=== PATIENT | male | born 1950 | race Caucasian/White ===

== ENCOUNTER 2017-08-18 20:07 | Inpatient (IN) | payer MEDICARE, BC ==
[~2017-08-18] VITALS: Ht 193 cm; Wt 76.9 kg
[2017-08-18 20:00] VITALS: BP 138/63; PULSE 61; RESP 16; TEMP 97.7; O2SAT 96
[2017-08-18 20:08] VITALS: BP 150/81; PULSE 85; RESP 16; TEMP 98.2; O2SAT 98
--- NOTE | 2017-08-18 21:01 | PD ---
HPI Chief Complaint: Laceration/Skin Injury Time Seen by Provider: 21:01 Travel History International Travel<30 days: No Contact w/Intl Traveler<30days: No Traveled to known affect area: No History of Present Illness HPI 66-year-old male with history of hypertension, pacemaker placement, on an unknown anticoagulant, presents to emergency department for evaluation of left foot injury sustained 2 days ago. Patient stepped on a rebar it went through his left foot. He was wearing his shoes during the incident. He went to urgent care. They updated his tetanus and started him on oral antibiotic. He went back today for follow-up and the wound has gotten worse with associated redness and swelling and now streaking up his left lower extremity. He reports moderate pain that is constant at the site. Worse with ambulation. He has had no fever or chills. Denies any other symptoms at this time. PFSH Past Medical History Hx Anticoagulant Therapy: Yes Cardiovascular Problems: Yes (HTN, Pacemaker ) Hypertension: Yes Tetanus Vaccination: < 5 Years Influenza Vaccination: No Past Surgical History Pacemaker: Yes Social History Alcohol Use: Yes (4-6 beers dails ) Tobacco Use: Yes (1 ppd) Substance Use: No Allergies-Medications (Allergen,Severity, Reaction): Coded Allergies: No Known Drug Allergies (Verified Allergy, Unknown, 08/18/17) Reported Meds & Prescriptions Reported Meds & Active Scripts Active Reported Office Medication (Miscellaneous Medication) Misc 1 Tab PO DAILY Office Medication (Miscellaneous Medication) Misc 1 Tab PO DAILY Office Medication (Miscellaneous Medication) Misc 1 Tab PO DAILY Augmentin (Amoxicillin-Clavulanate) 875-125 Mg Tab 1 Tab PO BID Review of Systems Except as stated in HPI: all other systems reviewed are Neg Physical Exam Narrative GENERAL: Well-nourished male patient, sitting in bed in no acute distress. SKIN: Focused skin assessment warm/dry. Unsure wound on the plantar surface of the left foot proximal to the fourth toe. There is mild edema there there partial wound extends through the foot and there is a 1 cm in diameter scabbed area. Erythema extends to the medial aspect of the foot and up to the distal third of the green. Area is tender to palpate. Patient can flex and extend the toes. States this is painful. HEAD: Atraumatic. Normocephalic. EYES: Pupils equal and round. No scleral icterus. No injection or drainage. ENT: No nasal bleeding or discharge. Mucous membranes pink and moist. NECK: Trachea midline. No JVD. CARDIOVASCULAR: Regular rate and rhythm. No murmur appreciated. RESPIRATORY: No accessory muscle use. Clear to auscultation. Breath sounds equal bilaterally. GASTROINTESTINAL: Abdomen soft, non-tender, nondistended. Hepatic and splenic margins not palpable. MUSCULOSKELETAL: No obvious deformities. No clubbing. No cyanosis. No edema. NEUROLOGICAL: Awake and alert. No obvious cranial nerve deficits. Motor grossly within normal limits. Normal speech. PSYCHIATRIC: Appropriate mood and affect; insight and judgment normal. Data Data Last Documented VS Vital Signs Date Time Temp Pulse Resp B/P (MAP) Pulse Ox O2 Delivery O2 Flow Rate FiO2 08/18/17 20:08 98.2 85 16 150/81 (104) 98 Room Air Orders Orders Foot, Complete ([id number]) (08/18/17 ) Complete Blood Count With Diff (08/18/17 21:08) Comprehensive Metabolic Panel (08/18/17 21:08) Blood Culture (08/18/17 21:08) Blood Glucose (08/18/17 21:08) Ecg Monitoring (08/18/17 21:08) Iv Access Insert/Monitor (08/18/17 21:08) Oximetry (08/18/17 21:08) Oxygen Administration (08/18/17 21:08) Vancomycin Inj (Vancomycin Inj) (08/18/17 21:15) Labs Laboratory Tests Test 08/18/17 21:15 White Blood Count 7.4 TH/MM3 Red Blood Count 4.53 MIL/MM3 Hemoglobin 15.3 GM/DL Hematocrit 43.8 % Mean Corpuscular Volume 96.7 FL Mean Corpuscular Hemoglobin 33.9 PG Mean Corpuscular Hemoglobin Concent 35.0 % Red Cell Distribution Width 13.2 % Platelet Count 193 TH/MM3 Mean Platelet Volume 7.9 FL Neutrophils (%) (Auto) 76.1 % Lymphocytes (%) (Auto) 14.5 % Monocytes (%) (Auto) 7.9 % Eosinophils (%) (Auto) 1.0 % Basophils (%) (Auto) 0.5 % Neutrophils # (Auto) 5.6 TH/MM3 Lymphocytes # (Auto) 1.1 TH/MM3 Monocytes # (Auto) 0.6 TH/MM3 Eosinophils # (Auto) 0.1 TH/MM3 Basophils # (Auto) 0.0 TH/MM3 CBC Comment DIFF FINAL Differential Comment Blood Urea Nitrogen 11 MG/DL Creatinine 0.92 MG/DL Random Glucose 98 MG/DL Total Protein 7.5 GM/DL Albumin 3.7 GM/DL Calcium Level 9.2 MG/DL Alkaline Phosphatase 68 U/L Aspartate Amino Transf (AST/SGOT) 20 U/L Alanine Aminotransferase (ALT/SGPT) 16 U/L Total Bilirubin 0.8 MG/DL Sodium Level 136 MEQ/L Potassium Level 4.3 MEQ/L Chloride Level 101 MEQ/L Carbon Dioxide Level 28.0 MEQ/L Anion Gap 7 MEQ/L Estimat Glomerular Filtration Rate 82 ML/MIN MDM Medical Decision Making Medical Screen Exam Complete: Yes Emergency Medical Condition: Yes Medical Record Reviewed: Yes Differential Diagnosis Cellulitis versus osteomyelitis versus puncture wound versus abscess Narrative Course 66-year-old male presents to emergency department for evaluation of a wound sustained 2 days ago. Patient has been on antibiotics outpatient and return for follow-up at the urgent care who then sent him to the emergency department for failed outpatient treatment. Patient appears nontoxic. Vital signs are stable. Laboratory Tests Test 08/18/17 21:15 White Blood Count 7.4 TH/MM3 Red Blood Count 4.53 MIL/MM3 Hemoglobin 15.3 GM/DL Hematocrit 43.8 % Mean Corpuscular Volume 96.7 FL Mean Corpuscular Hemoglobin 33.9 PG Mean Corpuscular Hemoglobin Concent 35.0 % Red Cell Distribution Width 13.2 % Platelet Count 193 TH/MM3 Mean Platelet Volume 7.9 FL Neutrophils (%) (Auto) 76.1 % Lymphocytes (%) (Auto) 14.5 % Monocytes (%) (Auto) 7.9 % Eosinophils (%) (Auto) 1.0 % Basophils (%) (Auto) 0.5 % Neutrophils # (Auto) 5.6 TH/MM3 Lymphocytes # (Auto) 1.1 TH/MM3 Monocytes # (Auto) 0.6 TH/MM3 Eosinophils # (Auto) 0.1 TH/MM3 Basophils # (Auto) 0.0 TH/MM3 CBC Comment DIFF FINAL Differential Comment Blood Urea Nitrogen 11 MG/DL Creatinine 0.92 MG/DL Random Glucose 98 MG/DL Total Protein 7.5 GM/DL Albumin 3.7 GM/DL Calcium Level 9.2 MG/DL Alkaline Phosphatase 68 U/L Aspartate Amino Transf (AST/SGOT) 20 U/L Alanine Aminotransferase (ALT/SGPT) 16 U/L Total Bilirubin 0.8 MG/DL Sodium Level 136 MEQ/L Potassium Level 4.3 MEQ/L Chloride Level 101 MEQ/L Carbon Dioxide Level 28.0 MEQ/L Anion Gap 7 MEQ/L Estimat Glomerular Filtration Rate 82 ML/MIN Lab work and imaging is reviewed. Patient will be admitted for failed outpatient treatment. He is given vancomycin IV here in emergency department. Discussed with the patient and his . They are in agreement with this plan of care. I spoke with Dr. Willard who suggested [facility]. I discussed this with the patient and his . They are not interested in doing [facility] and prefers that he in the hospital for monitoring and IV antibiotics. A call is placed again to Dr. WILLARD for admission. Diagnosis Primary Impression: Puncture wound of foot, left, complicated Qualified Codes: S91.332D - Puncture wound without foreign body, left foot, subsequent encounter Additional Impressions: Cellulitis Qualified Codes: L03.116 - Cellulitis of left lower limb Failure of outpatient treatment Admitting Information Admitting Physician Requests: Observation Condition: Stable RameshJuanita JIMMY Aug 18, 2017 21:01
[2017-08-18] MEDS ORDERED: AUGM875T3 PO (21:08)
[2017-08-18] MEDS ORDERED: OFFICE MEDICATION PO (21:10)
[2017-08-18] MEDS ORDERED: VANCOMYCIN INJ 1,000 MG in SODIUM CHLOR 0.9% 250 ML INJ 250 ML IV ONE (21:15)
[2017-08-18 21:40] LABS: AUTOMATED NEUTROPHIL # 5.6 TH/MM3 (1.8-7.7); BASOPHIL % 0.5 % (0.0-2.0); EOSINOPHIL # 0.1 TH/MM3 (0-0.4); HEMATOCRIT 43.8 % (39.0-51.0); HEMOGLOBIN 15.3 GM/DL (13.0-17.0); LYMPH % 14.5 % (9.0-44.0); LYMPHOCYTE # 1.1 TH/MM3 (1.0-4.8); MEAN CELL VOLUME 96.7 FL (80.0-100.0); MEAN CORPUSCULAR HEMOGLOBIN 33.9 PG (27.0-34.0); MEAN PLATELET VOLUME 7.9 FL (7.0-11.0); MONO % 7.9 % (0.0-8.0); MONOCYTE # 0.6 TH/MM3 (0-0.9); NEUT % 76.1 % (16.0-70.0); PLATELET COUNT 193 TH/MM3 (150-450); RED BLOOD COUNT 4.53 MIL/MM3 (4.50-5.90); RED CELL DISTRIBUTION WIDTH 13.2 % (11.6-17.2); WHITE BLOOD COUNT 7.4 TH/MM3 (4.0-11.0)
--- NOTE | 2017-08-18 21:42 | RADRPT ---
EXAM DATE/TIME: 08/18/2017 21:25 [facility] COMPARISON: No previous studies available for comparison. INDICATIONS : Left foot injury due to a allyson metal bar. MEDICAL HISTORY : None. SURGICAL HISTORY : None. ENCOUNTER: Initial ACUITY: 2 days PAIN SCORE: 10/10 LOCATION: Left cuboid area. FINDINGS: Three view examination of the left foot demonstrates no significant soft tissue swelling, dislocation , or fracture. The tarsal bones appear intact. The interphalangeal and metatarsophalangeal joints are intact. The calcaneus is intact. Bony mineralization is osteopenic. No radiopaque foreign teodora s. CONCLUSION: 1. No acute fracture or joint dislocation. 2. No radiopaque foreign bodies. Jaime Meier MD on August 18, 2017 at 21:38 Board Certified Radiologist. This report was verified electronically.
[2017-08-18 21:47] LABS: ALBUMIN 3.7 GM/DL (3.4-5.0); AST (GOT) 20 U/L (15-37); BLOOD UREA NITROGEN 11 MG/DL (7-18); CALCIUM 9.2 MG/DL (8.5-10.1); CHLORIDE 101 MEQ/L (98-107); CREATININE 0.92 MG/DL (0.60-1.30); GLOMERULAR FILTRATION RATE 82 ML/MIN (>89); GLUCOSE,RANDOM 98 MG/DL (74-106); SODIUM (NA) 136 MEQ/L (136-145)
[2017-08-18 21:48] LABS: ALT (GPT) 16 U/L (12-78)
[2017-08-18 21:50] LABS: ALKALINE PHOSPHATASE 68 U/L (45-117); TOTAL BILIRUBIN ADULT 0.8 MG/DL (0.2-1.0); TOTAL PROTEIN 7.5 GM/DL (6.4-8.2)
[2017-08-18 22:24] VITALS: BP 141/80; PULSE 63; RESP 16; O2SAT 98
--- NOTE | 2017-08-18 22:26 | HHI.HP ---
[facility] Service [place] Primary Care Physician Unknown Admission Diagnosis R FOOT WOUND CELLULITIS; FAILED OUTPT [place] Diagnoses: (1) Cellulitis Diagnosis: Principal (2) Failure of outpatient treatment Diagnosis: Principal (3) HTN (hypertension) Diagnosis: Principal (4) Tobacco abuse Diagnosis: Principal Travel History International Travel<30 Days: No Contact w/Intl Traveler <30 Da: No Traveled to Known Affected Are: No History of Present Illness This is a 66-year-old male with a PMH of HTN, CAD and Tobacco Abuse who presented to the ER with complaints of left foot pain. States he stepped on a piece of rebar on Monday (2 nights ago), was seen at Urgent Care, had Tetanus injection and given Augmentin 875mg bid. Reports taking antibiotics as instructed. Seen at Urgent Care today for follow up and referred to ER secondary to worsening infection. Denies fever, chills. Reports foot pain, constant, sharp, worse w/ ambulation/standing, non-radiating. On arrival, BP 150/81, HR 85, O2 sat 98% on RA, Afebrile. CBC essentially unremarkable except for elevated neutrophil count. Chemistry unremarkable except for GFR 82. Foot X-ray with no acute fracture, no foreign body noted. S/p Vanc in ER. Review of Systems Except as stated in HPI: all other systems reviewed are Neg ROS: 14 point review of systems otherwise negative. Past Family Social History Past Medical History PMH: HTN, CAD and Tobacco Abuse Past Surgical History PAST SURGICAL HISTORY: Pacemaker Allergies: Coded Allergies: No Known Drug Allergies (Verified Allergy, Unknown, 08/18/17) Family History PAST FAMILY HISTORY: Reviewed. No h/o DM or CAD Social History PAST SOCIAL HISTORY: Drinks 4-6 beers. Smokes 1ppd. Negative for drugs. Physical Exam Vital Signs Vital Signs Date Time Temp Pulse Resp B/P (MAP) Pulse Ox O2 Delivery O2 Flow Rate FiO2 08/18/17 22:24 63 16 141/80 (100) 98 Room Air 08/18/17 20:08 98.2 85 16 150/81 (104) 98 Room Air Physical Exam PE: GENERAL: Middle-aged white male in no acute distress. HEENT: PERRLA, EOMI. No scleral icterus or conjunctival pallor. No lid lag or facial droop. CARDIOVASCULAR: Regular rate and rhythm. No obvious murmurs to auscultation. No chest tenderness to palpation. RESPIRATORY: No obvious rhonchi or wheezing. Clear to auscultation. Breath sounds equal bilaterally. GASTROINTESTINAL: Abdomen soft, non-tender, nondistended. BS normal. MUSCULOSKELETAL: Extremities without clubbing, cyanosis, or edema. No obvious deformities. Left foot, plantar wound w/ surrounding erythema, streaking up leg. Pulses intact. NEUROLOGICAL: Awake, alert and oriented x4. No focal neurologic deficits. Moving both upper and lower extremities spontaneously. Laboratory Laboratory Tests Test 08/18/17 21:15 White Blood Count 7.4 Red Blood Count 4.53 Hemoglobin 15.3 Hematocrit 43.8 Mean Corpuscular Volume 96.7 Mean Corpuscular Hemoglobin 33.9 Mean Corpuscular Hemoglobin Concent 35.0 Red Cell Distribution Width 13.2 Platelet Count 193 Mean Platelet Volume 7.9 Neutrophils (%) (Auto) 76.1 Lymphocytes (%) (Auto) 14.5 Monocytes (%) (Auto) 7.9 Eosinophils (%) (Auto) 1.0 Basophils (%) (Auto) 0.5 Neutrophils # (Auto) 5.6 Lymphocytes # (Auto) 1.1 Monocytes # (Auto) 0.6 Eosinophils # (Auto) 0.1 Basophils # (Auto) 0.0 CBC Comment DIFF FINAL Differential Comment Blood Urea Nitrogen 11 Creatinine 0.92 Random Glucose 98 Total Protein 7.5 Albumin 3.7 Calcium Level 9.2 Alkaline Phosphatase 68 Aspartate Amino Transf (AST/SGOT) 20 Alanine Aminotransferase (ALT/SGPT) 16 Total Bilirubin 0.8 Sodium Level 136 Potassium Level 4.3 Chloride Level 101 Carbon Dioxide Level 28.0 Anion Gap 7 Estimat Glomerular Filtration Rate 82 Date/Time Source Procedure Growth Status 08/18/17 21:20 Blood Peripheral Aerobic Blood Culture Pending Received 08/18/17 21:20 Blood Peripheral Anaerobic Blood Culture Pending Received Result Diagram: 08/18/17211408/18/172114 Caprini VTE Risk Assessment Caprini VTE Risk Assessment: No/Low Risk (score <= 1) Caprini Risk Assessment Model Point Value = 1 Point Value = 2 Point Value = 3 Point Value = 5 Age 41-60 Minor surgery BMI > 25 kg/m2 Swollen legs Varicose veins or History of unexplained or recurrent spontaneous Oral contraceptives or hormone replacement Sepsis (< 1 month) Serious lung disease, including pneumonia (< 1 month) Abnormal pulmonary function Acute myocardial infarction Congestive heart failure (< 1 month) History of inflammatory bowel disease Medical patient at bed rest Age 61-74 Arthroscopic surgery Major open surgery (> 45 min) Laparoscopic surgery (> 45 min) Malignancy Confined to bed (> 72 hours) Immobilizing plaster cast Central venous access Age >= 75 History of VTE Family history of VTE Factor V Leiden Prothrombin [id number] Lupus anticoagulant Anticardiolipin antibodies Elevated serum homocysteine Heparin-induced thrombocytopenia Other congenital or acquired thrombophilia Stroke (< 1 month) Elective arthroplasty Hip, pelvis, or leg fracture Acute spinal cord injury (< 1 month) Prophylaxis Regimen Total Risk Factor Score Risk Level Prophylaxis Regimen 0-1 Low Early ambulation 2 Moderate Order ONE of the following: *Sequential Compression Device (SCD) *Heparin 5000 units SQ BID 3-4 Higher Order ONE of the following medications: *Heparin 5000 units SQ TID *Enoxaparin/Lovenox 40 mg SQ daily (WT < 150 kg, CrCl > 30 mL/min) *Enoxaparin/Lovenox 30 mg SQ daily (WT < 150 kg, CrCl > 10-29 mL/min) *Enoxaparin/Lovenox 30 mg SQ BID (WT < 150 kg, CrCl > 30 mL/min) AND/OR *Sequential Compression Device (SCD) 5 or more Highest Order ONE of the following medications: *Heparin 5000 units SQ TID (Preferred with Epidurals) *Enoxaparin/Lovenox 40 mg SQ daily (WT < 150 kg, CrCl > 30 mL/min) *Enoxaparin/Lovenox 30 mg SQ daily (WT < 150 kg, CrCl > 10-29 mL/min) *Enoxaparin/Lovenox 30 mg SQ BID (WT < 150 kg, CrCl > 30 mL/min) AND *Sequential Compression Device (SCD) Assessment and Plan Problem List: (1) Cellulitis ICD Code: L03.90 - Cellulitis, unspecified Status: Acute (2) Failure of outpatient treatment ICD Code: Z78.9 - Other specified health status Status: Acute (3) HTN (hypertension) ICD Code: I10 - Essential (primary) hypertension (4) Tobacco abuse ICD Code: Z72.0 - Tobacco use Assessment and Plan A/P: 1. Cellulitis: Left foot, s/p injury after stepping on rebar. Foot X-ray w/ no acute fracture or foreign body, images reviewed by me. S/p Blood Cultures, Vanc in ER. Follow up cultures, continue IV Abx, add Cefepime. Wound Consult for further eval/tx. 2. Failed Outpt Tx: injury 2 nights ago, seen at Urgent Care at that time, on Augmentin 875mg bid since then w/ no improvement. Continue IV Abx as above. 3. HTN: Uncontrolled. BP 150-160's systolic, monitor BP, antihypertensives as needed 4. Tobacco Abuse: Pt counselled. NicoDerm prn if needed. 5. DVT Prophylaxis: Mechanical contraindication secondary to wound. 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 7. Case discussed at length with ER physician, lab/records/imaging reviewed by me. Physician Certification 2 Midnight Certification Type: Admission for Inpatient Services Order for Inpatient Services The services are ordered in accordance with Medicare regulations or non- Medicare payer requirements, as applicable. In the case of services not specified as inpatient-only, they are appropriately provided as inpatient services in accordance with the 2-midnight benchmark. Estimated LOS (days): 2 days is the estimated time the patient will need to remain in the hospital, assuming treatment plan goals are met and no additional complications. Post-Hospital Plan: Not yet determined Problem Qualifiers (1) Cellulitis: Qualified Codes: L03.116 - Cellulitis of left lower limb Gregoria Colon MD Aug 18, 2017 22:26
[2017-08-18] MEDS ORDERED: LACTULOSE SYRUP 20 GM/30 ML CUP PO PRN (22:30)
[2017-08-18] MEDS ORDERED: SENNOSIDES 8.6 MG TAB PO PRN (22:30)
[2017-08-18] MEDS ORDERED: ACETAMINOPHEN 325 MG TAB PO PRN (22:30)
[2017-08-18] MEDS ORDERED: ONDANSETRON HCL 4 MG/2 ML VIAL IVP PRN (22:30)
[2017-08-18] MEDS ORDERED: SODIUM CHLORIDE 0.9% FLUSH 10 ML FLUSH IV FLUSH PRN (22:30)
[2017-08-18] MEDS ORDERED: BISACODYL 10 MG SUPP RECTAL PRN (22:30)
[2017-08-18] MEDS ORDERED: Vancomycin Consult Pharmacy 1 EA OTHER SCH (22:30)
[2017-08-18] MEDS ORDERED: MAGNESIUM HYDROXIDE SUSP 30 ML CUP PO PRN (22:30)
[2017-08-18] MEDS: CEFEPIME INJ 1,000 MG in SODIUM CHLORIDE 0.9% INJ 100 ML IV SCH (23:00)
[2017-08-19] MEDS: CEFEPIME INJ 1,000 MG in SODIUM CHLORIDE 0.9% INJ 100 ML IV SCH ×3 (00:14→23:07)
[2017-08-19 00:35] VITALS: BP 132/79; PULSE 76; RESP 18; TEMP 98.4; O2SAT 99
[2017-08-19 04:52] VITALS: BP 141/81; PULSE 63; RESP 18; TEMP 98.2; O2SAT 96
[2017-08-19 09:00] LABS: AUTOMATED NEUTROPHIL # 4.1 TH/MM3 (1.8-7.7); BASOPHIL # 0.1 TH/MM3 (0-0.2); EOSINOPHIL # 0.1 TH/MM3 (0-0.4); EOSINOPHIL % 2.4 % (0.0-4.0); HEMATOCRIT 40.1 % (39.0-51.0); LYMPH % 18.9 % (9.0-44.0); LYMPHOCYTE # 1.1 TH/MM3 (1.0-4.8); MEAN CELL VOLUME 97.8 FL (80.0-100.0); MEAN CORPUSCULAR HEMOGLOBIN 34.1 PG (27.0-34.0); MEAN CORPUSCULAR HGB CONC 34.8 % (32.0-36.0); MEAN PLATELET VOLUME 7.8 FL (7.0-11.0); MONOCYTE # 0.6 TH/MM3 (0-0.9); NEUT % 67.7 % (16.0-70.0); PLATELET COUNT 175 TH/MM3 (150-450); RED BLOOD COUNT 4.11 MIL/MM3 (4.50-5.90); RED CELL DISTRIBUTION WIDTH 13.3 % (11.6-17.2)
[2017-08-19] MEDS: DOCUSATE SODIUM 50 MG/SENNA 8.6 MG TAB PO SCH ×2 (09:00→21:25)
[2017-08-19] MEDS ORDERED: INFLUENZA VIRUS VACCINE (QUADRIVALENT) 0.5 ML SYR IM ONE (09:00)
[2017-08-19] MEDS: SODIUM CHLORIDE 0.9% FLUSH 10 ML FLUSH IV FLUSH SCH ×2 (09:00→21:25)
[2017-08-19 09:04] VITALS: BP 151/85; PULSE 64; RESP 18; TEMP 97.5; O2SAT 97
[2017-08-19 09:14] LABS: BICARBONATE 27.4 MEQ/L (21.0-32.0); BLOOD UREA NITROGEN 13 MG/DL (7-18); CALCIUM 8.6 MG/DL (8.5-10.1); CHLORIDE 103 MEQ/L (98-107); CREATININE 0.99 MG/DL (0.60-1.30); GLOMERULAR FILTRATION RATE 76 ML/MIN (>89); GLUCOSE,RANDOM 88 MG/DL (74-106); SODIUM (NA) 138 MEQ/L (136-145)
[2017-08-19 09:15] LABS: ALT (GPT) 12 U/L (12-78); AST (GOT) 18 U/L (15-37)
[2017-08-19 09:16] LABS: ALKALINE PHOSPHATASE 58 U/L (45-117); TOTAL BILIRUBIN ADULT 0.6 MG/DL (0.2-1.0); TOTAL PROTEIN 6.3 GM/DL (6.4-8.2)
[2017-08-19] MEDS: HEPARIN SODIUM - SQ 10,000 UNITS/ML VIAL SQ SCH ×2 (10:13→21:25)
[2017-08-19 12:51] VITALS: BP 145/78; PULSE 64; RESP 17; TEMP 97.8; O2SAT 96
--- NOTE | 2017-08-19 13:44 | HHI.PR ---
Subjective Remarks complains of left foot pain- unable to bear weight on foot states the erythema of the foot marked improved from admission Objective Vitals Vital Signs Date Time Temp Pulse Resp B/P (MAP) Pulse Ox O2 Delivery O2 Flow Rate FiO2 08/19/17 12:51 97.8 64 17 145/78 (100) 96 08/19/17 09:04 97.5 64 18 151/85 (107) 97 08/19/17 04:52 98.2 63 18 141/81 (101) 96 08/19/17 00:35 98.4 76 18 132/79 (96) 99 08/18/17 23:17 08/18/17 22:24 63 16 141/80 (100) 98 Room Air 08/18/17 20:08 98.2 85 16 150/81 (104) 98 Room Air I/O 08/18/17 08/18/17 08/18/17 08/19/17 08/19/17 08/19/17 07:00 15:00 23:00 07:00 15:00 23:00 Intake Total 250 ml Balance 250 ml Intake IV Total 250 ml Result Diagram: 08/19/17 0813 08/19/17 0813 Imaging Last Impressions Foot X-Ray 08/18/17 0000 Signed Impressions: Service Date/Time: Friday, August 18, 2017 21:25 - CONCLUSION: 1. No acute fracture or joint dislocation. 2. No radiopaque foreign bodies. Jaime Meier MD Objective Remarks awake and alert, no distress anicteric lungs clear egular rhythm abdomen soft left foot- bottom of the foot with quarter size dry scab wound- tender to touch , i don't feel any induration anterior aspect of the foot- lateral aspect- + erythema good peripheral pulses sensory grossly intact A/P Problem List: (1) Cellulitis ICD Code: L03.90 - Cellulitis, unspecified Status: Acute (2) Failure of outpatient treatment ICD Code: Z78.9 - Other specified health status Status: Acute (3) HTN (hypertension) ICD Code: I10 - Essential (primary) hypertension (4) Tobacco abuse ICD Code: Z72.0 - Tobacco use Assessment and Plan 66 years old male Left Cellulitis:, s/p injury after stepping on rebar. with dry scab tender wound on the bottom Foot X-ray w/ no acute fracture or foreign body, iS/p Blood Cultures, Vanc in ER. Follow up cultures, c Continue IV Abx,- Vancomycin + Cefepime. Wound Consult for further eval/tx. will get Podiatry consult- - evaluation- ? explore scab bottom of foot- tender will defer to them for need for any further imaging studies 2. Failed Outpt Tx: injury 2 nights ago, seen at Urgent Care at that time, on Augmentin 875mg bid since then w/ no improvement. Continue IV Abx as above. 3. HTN/History of PM placement will bring in meds 4. Tobacco Abuse: Pt counselled. NicoDerm prn if needed. 5. DVT Prophylaxis: Mechanical contraindication secondary to wound. 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 d/w patient Problem Qualifiers (1) Cellulitis: Qualified Codes: L03.116 - Cellulitis of left lower limb Nida Tanner MD Aug 19, 2017 13:44
[2017-08-19] MEDS ORDERED: VANCOMYCIN INJ 1,000 MG in SODIUM CHLOR 0.9% 250 ML INJ 250 ML IV SCH (14:00)
[2017-08-19 16:28] VITALS: BP 135/70; PULSE 69; RESP 17; TEMP 97.7; O2SAT 98
[2017-08-19] MEDS: ACETAMINOPHEN/HYDROcodone 325 MG/5 MG TAB PO PRN (19:26)
[2017-08-19] MEDS ORDERED: VANCOMYCIN INJ 1,250 MG in SODIUM CHLOR 0.9% 250 ML INJ 250 ML IV SCH (21:00)
[2017-08-20] VITALS: BP 134/70; PULSE 61; RESP 16; TEMP 97.4; O2SAT 95
[2017-08-20 04:00] VITALS: BP 137/73; PULSE 62; RESP 17; TEMP 97.2; O2SAT 95
--- NOTE | 2017-08-20 06:35 | PD.CONS ---
History of Present Illness Service foot and ankle surgery/podiatry Consult Requested By Reason for Consult left foot cellulitis/left foot ulcer Primary Care Physician Unknown Diagnoses: History of Present Illness Podiatry consulted for this 66-year-old male with past medical history of hypertension, coronary artery disease and tobacco use who presented to the ER with complaints of left foot secondary to stepping on allyson steel. Patient states he was seen in Urgent Care had a tetanus injection is given antibiotic. He says despite oral antibiotic therapy he was referred to the ED at [facility] because of worsening infection. Patient denies fevers chills however hear ports foot pain which is tender to palpation sharp constant and prevents him from walking. Review of Systems Constitutional: DENIES: Fatigue, Fever Respiratory: DENIES: Cough, Wheezing, Shortness of breath Cardiovascular: DENIES: Chest pain Gastrointestinal: DENIES: Abdominal pain Psychiatric: DENIES: Anxiety, Confusion Past Family Social History Allergies: Coded Allergies: No Known Drug Allergies (Verified Allergy, Unknown, 08/18/17) Past Medical History As in HPI Active Ordered Medications Current Medications Medications (Trade) Dose Ordered Sig/Timo Route Start Time Stop Time Status Last Admin Pharmacy Profile Note 0 ml @ 0 mls/hr UNSCH OTHER 08/18/17 22:30 Cefepime HCl 1000 mg/Sodium Chloride 100 ml @ 200 mls/hr Q12H IV 08/18/17 23:00 08/19/17 23:07 (NS Flush) 2 ml UNSCH PRN IV FLUSH 08/18/17 22:30 (NS Flush) 2 ml BID IV FLUSH 08/19/17 09:00 08/19/17 21:25 (Zofran Inj) 4 mg Q6H PRN IVP 08/18/17 22:30 (Tylenol) 650 mg Q6H PRN PO 08/18/17 22:30 ([place] 5-325 Mg) 1 tab Q4H PRN PO 08/18/17 22:30 08/19/17 19:26 (Morphine Inj) 2 mg Q3H PRN IV PUSH 08/18/17 22:30 (Alejandra-Colace) 1 tab BID PO 08/19/17 09:00 08/19/17 21:25 (Milk Of Magnesia Liq) 30 ml Q12H PRN PO 08/18/17 22:30 (Senokot) 17.2 mg Q12H PRN PO 08/18/17 22:30 (Dulcolax Supp) 10 mg DAILY PRN RECTAL 08/18/17 22:30 (Lactulose Liq) 30 ml DAILY PRN PO 08/18/17 22:30 (Heparin Inj) 5,000 units Q12HR SQ 08/19/17 09:00 08/19/17 21:25 Vancomycin HCl 1250 mg/Sodium Chloride 262.5 ml @ 250 mls/hr Q24H IV 08/19/17 21:00 08/19/17 21:25 Miscellaneous Information SPECIFIC LAB TO BE ANATOLY... ONCE ONCE .XX 08/21/17 20:45 08/21/17 20:46 Social History tobacco user Physical Exam Vital Signs Vital Signs Date Time Temp Pulse Resp B/P (MAP) Pulse Ox O2 Delivery O2 Flow Rate FiO2 08/20/17 04:00 97.2 62 17 137/73 (94) 95 08/20/17 00:00 97.4 61 16 134/70 (91) 95 08/19/17 16:28 97.7 69 17 135/70 (91) 98 08/19/17 12:51 97.8 64 17 145/78 (100) 96 08/19/17 09:04 97.5 64 18 151/85 (107) 97 Physical Exam GENERAL: This is a well-nourished, well-developed patient, in no apparent distress. SKIN: Left plantar foot ulcer HEAD: Atraumatic. Normocephalic. No temporal or scalp tenderness. EYES: Pupils equal round and reactive. ENT: Nose without bleeding, purulent drainage or septal hematoma. Airway patent. NECK: Trachea midline. RESPIRATORY: Non labored breathing. MUSCULOSKELETAL: No calf tenderness. Negative Homans sign bilaterally. NEUROLOGICAL: Awake and alert. Normal speech. Vascular: DP/PT nonpalpable to left lower extremity. Capillary refill time under 3 seconds within normal limits to digits x5 left lower extremity and no edema present to ankles, however pitting edema present to left dorsal foot. Neuro: Decreased pinpoint sensation. No hyperalgesia. Derm: Left foot plantar third metatarsal ulcer with dorsal midfoot erythema extending proximally. No streaking noted of the leg. Ulcer to left third metatarsal probing to bone with drainage. MSK: Tended to palpation of the left plantar foot ulcer. Bony osseous abnormalities noted clinically. Laboratory Laboratory Tests Test 08/19/17 08:13 White Blood Count 6.0 Red Blood Count 4.11 Hemoglobin 14.0 Hematocrit 40.1 Mean Corpuscular Volume 97.8 Mean Corpuscular Hemoglobin 34.1 Mean Corpuscular Hemoglobin Concent 34.8 Red Cell Distribution Width 13.3 Platelet Count 175 Mean Platelet Volume 7.8 Neutrophils (%) (Auto) 67.7 Lymphocytes (%) (Auto) 18.9 Monocytes (%) (Auto) 10.0 Eosinophils (%) (Auto) 2.4 Basophils (%) (Auto) 1.0 Neutrophils # (Auto) 4.1 Lymphocytes # (Auto) 1.1 Monocytes # (Auto) 0.6 Eosinophils # (Auto) 0.1 Basophils # (Auto) 0.1 CBC Comment DIFF FINAL Differential Comment Blood Urea Nitrogen 13 Creatinine 0.99 Random Glucose 88 Total Protein 6.3 Albumin 3.0 Calcium Level 8.6 Alkaline Phosphatase 58 Aspartate Amino Transf (AST/SGOT) 18 Alanine Aminotransferase (ALT/SGPT) 12 Total Bilirubin 0.6 Sodium Level 138 Potassium Level 4.2 Chloride Level 103 Carbon Dioxide Level 27.4 Anion Gap 8 Estimat Glomerular Filtration Rate 76 Date/Time Source Procedure Growth Status 08/18/17 21:20 Blood Peripheral Aerobic Blood Culture - Preliminary NO GROWTH IN 1 DAY Resulted 08/18/17 21:20 Blood Peripheral Anaerobic Blood Culture - Preliminary NO GROWTH IN 1 DAY Resulted Result Diagram: 08/19/17 0813 08/19/17 0813 Imaging Last Impressions Foot X-Ray 08/18/17 0000 Signed Impressions: Service Date/Time: Friday, August 18, 2017 21:25 - CONCLUSION: 1. No acute fracture or joint dislocation. 2. No radiopaque foreign bodies. Jaime Meier MD Assessment and Plan Assessment and Plan 66-year-old male with left plantar foot ulceration associated dorsal cellulitis Patient examined and evaluated with all questions answered Patient to OR today for surgical intervention of left foot patient demonstrated rest the piece of metal which infiltrated his foot will take OR cultures Arterial duplex Dopplers being performed today, concerned for vascular disease however patient's left foot is so acute with possible abscess will consider vascular consult depending on results of arterial studies Patient remain NPO after midnight All alternatives risks complications and benefits discussed with patient including but not limited to possible risk of amputation and the fact that his for circulation will pose a problem for Wound hearing in the reinfected. Chronic nonhealing wound could potentially result as surgical intervention patient is aware Consent to read left foot incision and drainage and bone biopsy to left third metatarsal with any other indicated procedures. Will obtain OR cultures/pathology Bailey Chinchilla DPM Aug 20, 2017 06:35
[2017-08-20 08:00] VITALS: BP 131/70; PULSE 62; RESP 17; TEMP 97.4; O2SAT 96
[2017-08-20] MEDS: SODIUM CHLORIDE 0.9% FLUSH 10 ML FLUSH IV FLUSH SCH ×2 (08:03→21:00)
[2017-08-20] MEDS: DOCUSATE SODIUM 50 MG/SENNA 8.6 MG TAB PO SCH ×2 (08:03→21:00)
[2017-08-20] MEDS: HEPARIN SODIUM - SQ 10,000 UNITS/ML VIAL SQ SCH ×2 (08:04→21:00)
[2017-08-20] MEDS ORDERED: CHLORHEXIDINE GLUCONATE 2 % 1 PACK (2 CLOTHS) TOPICAL PRN (10:15)
[2017-08-20] MEDS ORDERED: INSULIN HUMAN REGULAR 1,000 UNITS/10 ML VIAL SQ PRN (10:15)
[2017-08-20] MEDS: CEFEPIME INJ 1,000 MG in SODIUM CHLORIDE 0.9% INJ 100 ML IV SCH (10:15)
[2017-08-20] MEDS ORDERED: LACTATED RINGER'S 1000 ML IV PRN (10:15)
[2017-08-20] MEDS ORDERED: METOPROLOL TARTRATE 25 MG TAB PO PRN (10:15)
[2017-08-20] MEDS ORDERED: SODIUM CHLORID 0.9% 500 ML IV PRN (10:15)
[2017-08-20] MEDS ORDERED: POVIDONE IODINE 5% (ANTISEPSIS KIT) 4 APPLICATIONS EACH NARE PRN (10:15)
--- NOTE | 2017-08-20 11:15 | HHI.PR ---
Subjective Remarks afebrile looking forward to surgery Objective Vitals Vital Signs Date Time Temp Pulse Resp B/P (MAP) Pulse Ox O2 Delivery O2 Flow Rate FiO2 08/20/17 08:00 97.4 62 17 131/70 (90) 96 08/20/17 04:00 97.2 62 17 137/73 (94) 95 08/20/17 00:00 97.4 61 16 134/70 (91) 95 08/19/17 16:28 97.7 69 17 135/70 (91) 98 08/19/17 12:51 97.8 64 17 145/78 (100) 96 I/O 08/19/17 08/19/17 08/19/17 08/20/17 08/20/17 08/20/17 07:00 15:00 23:00 07:00 15:00 23:00 Intake Total 480 ml Output Total 650 ml Balance -170 ml Intake Oral 480 ml Output Urine Total 650 ml Result Diagram: 08/19/17 0808/19/17 0813 Imaging Last Impressions Foot X-Ray 08/18/17 0000 Signed Impressions: Service Date/Time: Friday, August 18, 2017 21:25 - CONCLUSION: 1. No acute fracture or joint dislocation. 2. No radiopaque foreign bodies. Jaime Meier MD Objective Remarks awake and alert, no distress anicteric lungs clear egular rhythm abdomen soft left foot- bottom of the foot with quarter size dry scab /necrotic wound- still operator gin to touch, anterior aspect of the foot- lateral aspect- + erythema- improved good peripheral pulses sensory grossly intact A/P Problem List: (1) Cellulitis ICD Code: L03.90 - Cellulitis, unspecified Status: Acute (2) Failure of outpatient treatment ICD Code: Z78.9 - Other specified health status Status: Acute (3) HTN (hypertension) ICD Code: I10 - Essential (primary) hypertension (4) Tobacco abuse ICD Code: Z72.0 - Tobacco use Assessment and Plan 66 years old male Left Cellulitis:, s/p injury after stepping on rebar. with dry necrotic scab tender wound- plantar aspect failed OP therapy with Augemntin Foot X-ray w/ no acute fracture or foreign body, iS/p Blood Cultures, Vanc in ER. Follow up cultures, c Continue IV Abx,- Vancomycin + Cefepime. Wound Consult for further eval/tx. Podiatry saw him and taking him to OR for I and D/exploration HTN/History of PM placement will bring in meds Tobacco Abuse: Pt counselled. NicoDerm prn if needed. DVT Prophylaxis: Mechanical contraindication secondary to wound. 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 Problem Qualifiers (1) Cellulitis: Qualified Codes: L03.116 - Cellulitis of left lower limb Nida Tanner MD Aug 20, 2017 11:15
[2017-08-20 12:00] VITALS: BP 136/68; PULSE 71; RESP 18; TEMP 97.6; O2SAT 98
[2017-08-20] MEDS ORDERED: LIDOCAINE HCL 1% PF 5 ML SYRINGE OTHER ONE (12:00)
[2017-08-20] MEDS ORDERED: SUCCINYLCHOLINE CHLORIDE 200 MG/10 ML VIAL IV ONE (12:00)
[2017-08-20] MEDS ORDERED: PROPOFOL 200 MG/20 ML AMP IV ONE (12:00)
[2017-08-20] MEDS ORDERED: ESMOLOL HCL 100 MG/10 ML VIAL IV ONE (12:00)
[2017-08-20] MEDS ORDERED: ONDANSETRON HCL 4 MG/2 ML VIAL IV ONE (12:00)
[2017-08-20] MEDS ORDERED: ePHEDrine/NS 25 MG/5 ML SYRINGE IV ONE (12:00)
[2017-08-20] MEDS ORDERED: PHENYLEPH/NS 1000 MCG/10 ML SYR IV ONE (12:00)
--- NOTE | 2017-08-20 15:24 | RADRPT ---
EXAM DATE/TIME: 08/20/2017 14:14 [facility] COMPARISON: No previous studies available for comparison. INDICATIONS : Pre op. MEDICAL HISTORY : None. SURGICAL HISTORY : None. ENCOUNTER: Initial ACUITY: 4 - 6 days PAIN SCORE: 0/10 LOCATION: Bilateral chest FINDINGS: There is a bipolar pacemaker overlying the left hemithorax. Lung saenz may be minimally hyperinflate d and are clear with no acute cardiopulmonary process normal heart and aorta as well as vascularity. Surgical clips noted in the lower left neck supraclavicular region. CONCLUSION: No acute disease. Bull Powell MD on August 20, 2017 at 15:20 Board Certified Radiologist. This report was verified electronically.
[2017-08-20 16:00] VITALS: BP 178/99; PULSE 60; RESP 18; TEMP 97.9; O2SAT 98
--- NOTE | 2017-08-20 16:16 | RADRPT ---
EXAM DATE/TIME: 08/20/2017 00:00 [facility] COMPARISON: No previous studies available for comparison. INDICATIONS : Right Foot Wound Cellulitis TECHNIQUE: Five-station segmental examination of the lower extremities was performed. Pulsed-cuff waveform tracings and pressures were recorded. Ankle-brachial indices and toe-brachial indices were calculated. PRESSURES (mmHg): Brachial (arm): Right 157 Left IV SITE Lower Thigh: Right 176 Left 209 Calf: Right 188 Left 131 Ankle: Right 172 Left 155 Toe: Right 91 Left 45 CASSIE: Right 1.10 Left 0.99 TBI: Right 0.58 Left 0.29 PULSED CUFF WAVEFORMS: Demonstrate normal amplitude bilaterally in the thighs and knees. There is a blunted waveform in the ankles bilaterally.. CONCLUSION: Normal bilateral CASSIE. Juan Luis Samano MD on August 20, 2017 at 16:14 Board Certified Radiologist. This report was verified electronically.
--- NOTE | 2017-08-20 17:31 | EKG ---
Date Performed: 08/19/2017 Time Performed: 14:28:15 PTAGE: 66 years EKG: ELECTRONIC ATRIAL PACEMAKER MARKED LEFT AXIS DEVIATION RIGHT BUNDLE BRANCH BLOCK ABNORMAL E CG NO PREVIOUS TRACING DOCTOR: Shekhar Marin Interpretating Date/Time 08/20/2017 17:30:26
--- NOTE | 2017-08-20 20:51 | HHI.PR ---
Subjective Remarks Patient seen preop. Denies any nausea vomiting fevers chills. Anxious to proceed with surgical intervention Objective Vital Signs Date Time Temp Pulse Resp B/P (MAP) Pulse Ox O2 Delivery O2 Flow Rate FiO2 08/20/17 16:00 97.9 60 18 178/99 (125) 98 08/20/17 12:00 97.6 71 18 136/68 (90) 98 08/20/17 08:00 97.4 62 17 131/70 (90) 96 08/20/17 04:00 97.2 62 17 137/73 (94) 95 08/20/17 00:00 97.4 61 16 134/70 (91) 95 I/O 08/19/17 08/19/17 08/19/17 08/20/17 08/20/17 08/20/17 07:00 15:00 23:00 07:00 15:00 23:00 Intake Total 480 ml Output Total 650 ml Balance -170 ml Intake Oral 480 ml Output Urine Total 650 ml Result Diagram: 08/19/17 0813 08/19/17 0813 Imaging Last Impressions Chest X-Ray 08/20/17 1330 Signed Impressions: Service Date/Time: Sunday, August 20, 2017 14:14 - CONCLUSION: No acute disease. Bull Powell MD Foot X-Ray 08/18/17 0000 Signed Impressions: Service Date/Time: Friday, August 18, 2017 21:25 - CONCLUSION: 1. No acute fracture or joint dislocation. 2. No radiopaque foreign bodies. Jaime Meier MD Other Results Microbiology Date/Time Source Procedure Growth Status 08/18/17 21:20 Blood Peripheral Aerobic Blood Culture - Preliminary NO GROWTH IN 2 DAYS Resulted 08/18/17 21:20 Blood Peripheral Anaerobic Blood Culture - Preliminary NO GROWTH IN 2 DAYS Resulted Objective Remarks Decreased erythema noted to left foot however no improvement in recession of cellulitis. No change to physical exam from 08/19 Medications and IVs Current Medications Medications (Trade) Dose Ordered Sig/Timo Route Start Time Stop Time Status Last Admin Pharmacy Profile Note 0 ml @ 0 mls/hr UNSCH OTHER 08/18/17 22:30 Cefepime HCl 1000 mg/Sodium Chloride 100 ml @ 200 mls/hr Q12H IV 08/18/17 23:00 08/20/17 10:15 (NS Flush) 2 ml UNSCH PRN IV FLUSH 08/18/17 22:30 (NS Flush) 2 ml BID IV FLUSH 08/19/17 09:00 08/19/17 21:25 (Zofran Inj) 4 mg Q6H PRN IVP 08/18/17 22:30 (Tylenol) 650 mg Q6H PRN PO 08/18/17 22:30 ([place] 5-325 Mg) 1 tab Q4H PRN PO 08/18/17 22:30 08/19/17 19:26 (Morphine Inj) 2 mg Q3H PRN IV PUSH 08/18/17 22:30 (Alejandra-Colace) 1 tab BID PO 08/19/17 09:00 08/19/17 21:25 (Milk Of Magnesia Liq) 30 ml Q12H PRN PO 08/18/17 22:30 (Senokot) 17.2 mg Q12H PRN PO 08/18/17 22:30 (Dulcolax Supp) 10 mg DAILY PRN RECTAL 08/18/17 22:30 (Lactulose Liq) 30 ml DAILY PRN PO 08/18/17 22:30 (Heparin Inj) 5,000 units Q12HR SQ 08/19/17 09:00 08/19/17 21:25 Vancomycin HCl 1250 mg/Sodium Chloride 262.5 ml @ 250 mls/hr Q24H IV 08/19/17 21:00 08/19/17 21:25 Miscellaneous Information SPECIFIC LAB TO BE ANATOLY... ONCE ONCE .XX 08/21/17 20:45 08/21/17 20:46 Lactated Ringer's 1,000 ml @ 30 mls/hr Q24H PRN IV 08/20/17 10:15 08/23/17 10:14 Sodium Chloride 500 ml @ 30 mls/hr [id number] PRN IV 08/20/17 10:15 08/23/17 10:14 (Lopressor) 25 mg TERRITORY MANAGER [employer] PRN PO 08/20/17 10:15 08/23/17 10:14 (Betadine 5% Antisepsis Kit) 1 applic [employer]GER [employer] PRN EACH NARE 08/20/17 10:15 08/23/17 10:14 (Chlorhexidine 2% Cloth) 3 pack [employer] PRN TOPICAL 08/20/17 10:15 08/23/17 10:14 (NovoLIN R INJ) See Protocol Table ... T[employer]ITORY MANAGER [employer] PRN SQ 08/20/17 10:15 08/23/17 10:14 Assessment and Plan Assessment and Plan 66-year-old male with left plantar foot ulceration associated dorsal cellulitis Patient examined and evaluated with all questions answered Patient to OR today for surgical intervention of left foot Arterial duplex Dopplers being performed today, concerned for vascular disease however patient's left foot is so acute with possible abscess will consider vascular consult depending on results of arterial studies Patient remain NPO after midnight All alternatives risks complications and benefits discussed with patient including but not limited to possible risk of amputation and the fact that his for circulation will pose a problem for Wound hearing in the reinfected. Chronic nonhealing wound could potentially result as surgical intervention patient is aware Consent to read left foot incision and drainage and bone biopsy to left third metatarsal with any other indicated procedures. Will obtain OR cultures/pathology Left lower extremity marked Bailey Chinchilla DPM Aug 20, 2017 20:51
[2017-08-20] MEDS ORDERED: GENTAMICIN SULFATE 80 MG/2 ML VIAL ONE (21:03)
[2017-08-20] MEDS ORDERED: HYDROmorphone HCL PF 2 MG/ML VIAL ONE (21:06)
[2017-08-20] MEDS ORDERED: diphenhydrAMINE HCL 50 MG/ML VIAL ONE (21:15)
[2017-08-20] MEDS ORDERED: VANCOMYCIN HCL 1000 MG VIAL ONE (21:34)
--- NOTE | 2017-08-20 22:13 | HHI.PR ---
Immediate Post Op Note Procedure Date: Aug 20, 2017 Pre Op Diagnosis: Left foot abscess Post Op Diagnosis: Left foot abscess Surgeon: Bailey Chinchilla Db2 Dba(s): None Procedure: Left foot incision and drainage with bone biopsy fourth metatarsal Findings: None Additional Information: None Complications: None Specimen(s) removed: Left foot soft tissue from micro, left foot fourth metatarsal for culture, left foot fourth metatarsal for pathology Estimated blood loss: Less than 5 cc Anesthesia: General Drains: None Patient to: PACU Patient Condition: Bailey Montanez DPM Aug 20, 2017 22:13
[2017-08-20] MEDS ORDERED: NALOXONE HCL 0.4 MG/ML AMP IV PUSH PRN (22:15)
[2017-08-20] MEDS ORDERED: DO NOT ADM ANY ANTICOAGULANT DRUGS PRN (22:15)
[2017-08-20] MEDS ORDERED: Post-op Orders (for Pharmacy) XX ONE (22:15)
[2017-08-20] MEDS: VANCOMYCIN INJ 1,250 MG in SODIUM CHLOR 0.9% 250 ML INJ 250 ML IV SCH (23:06)
[2017-08-21] VITALS (7 sets, daily range): BP systolic 127–153; BP diastolic 65–80; PULSE 61–95; RESP 16–18; TEMP 97.4–98.7; O2SAT 94–97
[2017-08-21] MEDS: CEFEPIME INJ 1,000 MG in SODIUM CHLORIDE 0.9% INJ 100 ML IV SCH ×3 (00:26→22:21)
[2017-08-21] MEDS: ACETAMINOPHEN/HYDROcodone 325 MG/5 MG TAB PO PRN ×4 (00:27→22:22)
[2017-08-21] MEDS: MORPHINE SULFATE 2 MG/ML INJ IV PUSH PRN ×3 (01:37→23:23)
--- NOTE | 2017-08-21 09:31 | HHI.PR ---
Subjective Remarks minimal pain afebrile Objective Vitals Vital Signs Date Time Temp Pulse Resp B/P (MAP) Pulse Ox O2 Delivery O2 Flow Rate FiO2 08/21/17 08:23 98.1 70 18 130/80 (97) 96 08/21/17 04:00 97.4 67 16 127/65 (85) 96 08/21/17 00:00 97.4 67 16 127/65 (85) 96 08/20/17 22:15 60 15 162/87 (112) 100 Room Air 08/20/17 22:00 97.9 60 15 162/85 (110) 100 Nasal Cannula 2 08/20/17 16:00 97.9 60 18 178/99 (125) 98 08/20/17 12:00 97.6 71 18 136/68 (90) 98 I/O 08/20/17 08/20/17 08/20/17 08/21/17 08/21/17 08/21/17 07:00 15:00 23:00 07:00 15:00 23:00 Intake Total 480 ml 1520 ml Output Total 650 ml 920 ml 150 ml Balance -170 ml 600 ml -150 ml Intake Oral 480 ml 820 ml Other 700 ml Output Urine Total 650 ml 900 ml 150 ml Other 20 ml Result Diagram: 08/19/17 0813 08/19/17 0813 Imaging Last Impressions Chest X-Ray 08/20/17 1330 Signed Impressions: Service Date/Time: Sunday, August 20, 2017 14:14 - CONCLUSION: No acute disease. Bull Powell MD Foot X-Ray 08/18/17 0000 Signed Impressions: Service Date/Time: Friday, August 18, 2017 21:25 - CONCLUSION: 1. No acute fracture or joint dislocation. 2. No radiopaque foreign bodies. Jaime Meier MD Objective Remarks awake and alert, no distress anicteric lungs clear regular rhythm abdomen soft left foot- post op dressing in place, moves toes freely Procedures 08/20 Left foot incision and drainage with bone biopsy fourth metatarsal A/P Problem List: (1) Cellulitis ICD Code: L03.90 - Cellulitis, unspecified Status: Acute (2) Failure of outpatient treatment ICD Code: Z78.9 - Other specified health status Status: Acute (3) HTN (hypertension) ICD Code: I10 - Essential (primary) hypertension (4) Tobacco abuse ICD Code: Z72.0 - Tobacco use Assessment and Plan 66 years old male S/p injury after stepping on rebar. with dry necrotic scab tender wound- plantar aspect Left foot cellulitis with dry necrotic wound plantar aspect S/P I and D with biopsy of 4th metatarsal- 08/20 failed OP therapy with Augmentin CASSIE studies-normal Continue IV Abx,- Vancomycin + Cefepime. Podiatry ff ff c and S and pathology HTN/History of PM placement meds- will restart home meds- ANEL/CCB, Plavix Tobacco Abuse: Pt counselled. NicoDerm prn if needed. DVT Prophylaxis: Mechanical contraindication secondary to wound. 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 Problem Qualifiers (1) Cellulitis: Qualified Codes: L03.116 - Cellulitis of left lower limb Nida Tanner MD Aug 21, 2017 09:31
[2017-08-21] MEDS: SODIUM CHLORIDE 0.9% FLUSH 10 ML FLUSH IV FLUSH SCH ×2 (09:33→22:20)
[2017-08-21] MEDS: DOCUSATE SODIUM 50 MG/SENNA 8.6 MG TAB PO SCH ×2 (09:33→22:20)
[2017-08-21] MEDS: HEPARIN SODIUM - SQ 10,000 UNITS/ML VIAL SQ SCH ×2 (09:33→22:20)
[2017-08-21 09:42] LABS: CREATININE 0.79 MG/DL (0.60-1.30)
[2017-08-21] MEDS ORDERED: AMLO10TA2 PO (09:58)
[2017-08-21] MEDS ORDERED: ENAL2.5T PO (09:58)
[2017-08-21] MEDS ORDERED: HYDR-3516 PO (09:58)
[2017-08-21] MEDS ORDERED: CLOP75TA PO (09:58)
[2017-08-21] MEDS ORDERED: AMOX875T2 PO (10:00)
[2017-08-21] MEDS: ENALAPRIL MALEATE 2.5 MG TAB PO SCH (11:46)
[2017-08-21] MEDS: CLOPIDOGREL 75 MG TAB PO SCH (11:46)
--- NOTE | 2017-08-21 16:47 | MB ---
cc: CHRISTOS REID MD DATE OF CONSULTATION 08/21/[address] Chinchilla REASON FOR CONSULTATION Left foot infection. Failed outpatient antibiotics. I & D performed 08/20. HISTORY OF PRESENT ILLNESS This is a 66-year-old white male who stepped onto a piece of rusted sharp metal which was holding up concrete in a parking lot. The patient subsequently developed erythema and swelling and pain two days later with redness streaking up his leg. The patient had pulled out the metal piece from his foot at the time of the incident. He presented to the emergency department when he developed the swelling and erythema. He was admitted to the hospital and he underwent I&D of the foot yesterday evening. Prior to being seen in emergency department he was receiving oral antibiotics and he was given a tetanus injection. A culture was taken from the wound did yesterday evening and the results are pending. Pathology sample was also sent for evaluation. The full surgical note is not available. The area involved is the fourth metatarsal. The patient is awake and alert. He denies nausea or vomiting or chills, shortness of breath. He tells me that he has pain in the foot currently. PAST MEDICAL HISTORY Of: 1. Hypertension. 2. Coronary artery disease. 3. No history of diabetes mellitus. 4. History of pacemaker implantation 10 years ago. MEDICATIONS 1. Vancomycin. 2. Cefepime. 3. Vasotec. 4. Plavix. 5. Alejandra-Colace. 6. Subcutaneous heparin. 7. [place] 5 as needed. 8. Morphine sulfate as needed. SOCIAL HISTORY He is . Positive tobacco use one pack a day. Positive alcohol use four to six beers daily. Denies illicit drugs. FAMILY HISTORY Noncontributory. REVIEW OF SYSTEMS Negative on 10-point review except for pain in the right foot. PHYSICAL EXAMINATION GENERAL: He is a well-developed male who is in no acute distress. VITAL SIGNS: Temperature 97.4, BP 130/69, respirations 18, heart rate 63. HEENT: The head is atraumatic. Extraocular movements grossly intact, pupils reactive to light. No icterus. Oropharynx moist mucosa without lesions. NECK: Supple without adenopathy or swelling. LUNGS: Clear breath sounds bilateral. HEART: Regular S1-S2 without murmurs, rubs or gallops. ABDOMEN: Bowel sounds present, soft, no tenderness appreciated. RECTAL: Not performed. EXTREMITIES: The left foot is wrapped in a surgical dressing. There is obvious swelling of the left foot and the area of the distal tibia beyond the wrapping is warm. There is a tiny streak of redness just above the surgical wrapping at the distal tibia extending approximately 3 cm from the ankle. SKIN: No diffuse rash. NEUROLOGIC: No gross focal findings. PSYCHIATRIC: The patient is calm and cooperative. His affect appears somewhat labile and he appears to be short tempered. LABORATORY DATA WBC 6.0, platelets 175, 67% neutrophils, 18% lymphocytes, 10% monocytes. Hemoglobin 14.0. Creatinine 0.79, estimated GFR 98. IMPRESSION 1. Abscess of the left foot following traumatic injury with rusted metal. 2. Cellulitis following puncture injury to the left foot at the fourth metatarsal. 3. Left foot pain. RECOMMENDATIONS 1. Continue vancomycin. 2. Continue cefepime. 3. Follow the wound culture for antibiotic adjustment. 4. Monitor the pathology from the metatarsal biopsy to determine if there are any signs of osteomyelitis. It will not be possible to determine antibiotics until we get further word on the results of the culture. Thank you this consultation. I will follow the patient's progress and follow the cultures and make further recommendations once information becomes available. Thank you for this consultation. Christos Reid MD FD/REJI /2:34 PM /4:21 PM SALVADOR
[2017-08-21] MEDS ORDERED: PHARMACY ORDERED LAB ONE ×2 (20:45→22:45)
[2017-08-21] MEDS: VANCOMYCIN INJ 1,250 MG in SODIUM CHLOR 0.9% 250 ML INJ 250 ML IV SCH (23:19)
[2017-08-22] VITALS (8 sets, daily range): BP systolic 136–169; BP diastolic 68–85; PULSE 60–68; RESP 17–19; TEMP 97.1–98.2; O2SAT 94–97
[2017-08-22] MEDS: ACETAMINOPHEN/HYDROcodone 325 MG/5 MG TAB PO PRN ×2 (06:07→18:30)
[2017-08-22] MEDS: VANCOMYCIN INJ 1,250 MG in SODIUM CHLOR 0.9% 250 ML INJ 250 ML IV SCH ×2 (09:30→21:52)
[2017-08-22] MEDS: CLOPIDOGREL 75 MG TAB PO SCH (09:31)
[2017-08-22] MEDS: HEPARIN SODIUM - SQ 10,000 UNITS/ML VIAL SQ SCH ×2 (09:31→21:52)
[2017-08-22] MEDS: ENALAPRIL MALEATE 2.5 MG TAB PO SCH (09:31)
[2017-08-22] MEDS: DOCUSATE SODIUM 50 MG/SENNA 8.6 MG TAB PO SCH ×2 (09:32→21:52)
[2017-08-22] MEDS: SODIUM CHLORIDE 0.9% FLUSH 10 ML FLUSH IV FLUSH SCH ×2 (09:43→11:49)
--- NOTE | 2017-08-22 11:05 | MP ---
cc: KAMALA ALEXIS DPM DATE 08/20/2017 SURGEON Kamala Alexis. 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 PREOPERATIVE DIAGNOSIS Left foot abscess. POSTOPERATIVE DIAGNOSIS Left foot abscess. PROCEDURE 1. Left foot incision and drainage. 2. Left bone biopsy. ANESTHESIA General with local 10 cc infiltrated about the foot in block fashion. HEMOSTASIS None. ESTIMATED BLOOD LOSS 10 cc. MATERIALS 2-0 Prolene. INJECTABLES None. COMPLICATIONS None. INDICATION FOR PROCEDURE Patient stepped on a steel johnathan. He failed outpatient antibiotics. He was seen in urgent care and proceeded to the ED with purulent drainage and cellulitis of his leg. The patient understands all the risks, benefits and alternatives associated with the procedure. He would like to proceed with incision and drainage. DESCRIPTION OF PROCEDURE The patient was seen, brought to the operating room and placed on the operating room table in a supine position. The left foot was then prepped and draped in the usual sterile fashion. Attention was directed to the plantar foot where a 3 cm incision was made. A hemostat was utilized to dissect the subcutaneous tissue with a significant amount of hematoma and purulent drainage was noted. Copious irrigation with three liters was performed. The wound was packed with vancomycin powder and 1/4 inch plain packing. 2-0 Prolene was utilized to close the skin. The left foot was dressed with Fluff, Hunter and Rudy. A bone biopsy was performed to the 4th metatarsal and sent for culture and pathology. Soft tissue was sent for culture. The patient tolerated the procedure and anesthesia well. He was transferred to PACU with vital signs stable and neurovascular status intact. Will follow cultures on floor. JORGE Torres /10:05 PM /10:45 AM
[2017-08-22] MEDS: CEFEPIME INJ 1,000 MG in SODIUM CHLORIDE 0.9% INJ 100 ML IV SCH (11:49)
--- NOTE | 2017-08-22 13:25 | HHI.PR ---
Subjective Remarks + pain plantar aspect of foot on exam no fever Objective Vitals Vital Signs Date Time Temp Pulse Resp B/P (MAP) Pulse Ox O2 Delivery O2 Flow Rate FiO2 08/22/17 12:46 97.3 60 17 163/79 (107) 97 08/22/17 08:56 97.1 64 18 169/84 (112) 97 08/22/17 08:45 95 21 08/22/17 05:29 97.6 60 18 136/68 (90) 94 08/22/17 00:24 98.2 62 19 152/82 (105) 95 08/21/17 21:17 98.7 95 18 147/77 (100) 97 08/21/17 16:51 98.3 61 17 153/80 (104) 96 I/O 08/21/17 08/21/17 08/21/17 08/22/17 08/22/17 08/22/17 07:00 15:00 23:00 07:00 15:00 23:00 Intake Total 1520 ml 480 ml 350 ml Output Total 920 ml 350 ml 600 ml 600 ml Balance 600 ml 130 ml -600 ml 350 ml -600 ml Intake Oral 820 ml 480 ml IV Total 350 ml Other 700 ml Output Urine Total 900 ml 350 ml 600 ml 600 ml Other 20 ml Result Diagram: 08/19/17 0813 08/21/17 0837 Imaging Last Impressions Chest X-Ray 08/20/17 1330 Signed Impressions: Service Date/Time: Sunday, August 20, 2017 14:14 - CONCLUSION: No acute disease. Bull Powell MD Foot X-Ray 08/18/17 0000 Signed Impressions: Service Date/Time: Friday, August 18, 2017 21:25 - CONCLUSION: 1. No acute fracture or joint dislocation. 2. No radiopaque foreign bodies. Jaime Meier MD Objective Remarks awake and alert, no distress anicteric lungs clear regular rhythm abdomen soft left foot- warm, plantar aspect- wound/incision with sutures in place, iodoform packing drain in place,,sensitive to touch erythema improved good peripheral pulses Procedures 08/20 Left foot incision and drainage with bone biopsy fourth metatarsal A/P Problem List: (1) Cellulitis ICD Code: L03.90 - Cellulitis, unspecified Status: Acute (2) Failure of outpatient treatment ICD Code: Z78.9 - Other specified health status Status: Acute (3) HTN (hypertension) ICD Code: I10 - Essential (primary) hypertension (4) Tobacco abuse ICD Code: Z72.0 - Tobacco use Assessment and Plan 66 years old male S/p injury after stepping on rebar. with dry necrotic scab tender wound- plantar aspect Left foot cellulitis with dry necrotic wound plantar aspect S/P I and D with biopsy of 4th metatarsal- 08/20 failed OP therapy with Augmentin CASSIE studies-normal Continue IV Abx,- Vancomycin + Cefepime. ID ff Podiatry ff ff c and S and pathology- still pending HTN/History of PM placement meds- - ANEL/CCB, Plavix Tobacco Abuse: Pt counselled. NicoDerm prn if needed. 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 PT consult- for ambulation- device- ? walker Problem Qualifiers (1) Cellulitis: Qualified Codes: L03.116 - Cellulitis of left lower limb Nida Tanner MD Aug 22, 2017 13:25
--- NOTE | 2017-08-22 16:36 | HHI.IDPN ---
Note Infectious Disease Note Patient feels okay. Has pain in the L. foot. No other complaints. Afebrile. 66-year-old white male who stepped onto a piece of rusted sharp metal which was holding up concrete in a parking lot. The patient subsequently developed erythema and swelling and pain two days later with redness streaking up his left leg. The patient had pulled out the metal piece from his foot at the time of the incident. He presented to the emergency department when he developed the swelling and erythema. He was admitted to the hospital and he underwent I&D of the foot. Prior to being seen in emergency department he was receiving oral antibiotics and he was given a tetanus injection. PAST MEDICAL HISTORY 1. Hypertension. 2. Coronary artery disease. 3. No history of diabetes mellitus. 4. History of pacemaker implantation 10 years ago. ANTIBIOTICS 1. Vancomycin. 2. Cefepime. OBJECTIVE: Vital Signs Date Time Temp Pulse Resp B/P (MAP) Pulse Ox O2 Delivery O2 Flow Rate FiO2 08/22/17 12:46 97.3 60 17 163/79 (107) 97 08/22/17 08:56 97.1 64 18 169/84 (112) 97 08/22/17 08:45 95 21 08/22/17 05:29 97.6 60 18 136/68 (90) 94 08/22/17 00:24 98.2 62 19 152/82 (105) 95 08/21/17 21:17 98.7 95 18 147/77 (100) 97 08/21/17 16:51 98.3 61 17 153/80 (104) 96 Laboratory Tests Test 08/21/17 13:30 Erythrocyte Sedimentation Rate 37 mm/hr Laboratory Tests Test 08/21/17 08:37 Creatinine 0.79 MG/DL Estimat Glomerular Filtration Rate 98 ML/MIN Microbiology Date/Time Source Procedure Growth Status 08/20/17 21:30 Abscess Foot Fungal Smear - Final NO FUNGAL ELEMENTS SEEN. Resulted 08/20/17 21:30 Abscess Foot Fungal Culture Pending Resulted 08/20/17 21:30 Abscess Foot Acid Fast Stain - Final NO ACID FAST BACILLI SEEN Resulted 08/20/17 21:30 Abscess Foot Mycobacterial Culture Pending Resulted 08/20/17 21:30 Abscess Foot Gram Stain - Final Resulted 08/20/17 21:30 Abscess Foot Wound Culture - Preliminary NO GROWTH IN 24 HOURS. Resulted 08/20/17 21:30 Abscess Foot Fungal Smear - Final NO FUNGAL ELEMENTS SEEN. Resulted 08/20/17 21:30 Abscess Foot Fungal Culture Pending Resulted 08/20/17 21:30 Abscess Foot Gram Stain - Final Resulted 08/20/17 21:30 Abscess Foot Wound Culture - Preliminary NO GROWTH IN 24 HOURS. Resulted PHYSICAL EXAMINATION GENERAL: No acute distress. HEENT: The head is atraumatic. Extraocular movements grossly intact, pupils reactive to light. No icterus. Oropharynx moist mucosa without lesions. NECK: Supple without adenopathy or swelling. LUNGS: Clear breath sounds bilateral. HEART: Regular S1-S2 without murmurs, rubs or gallops. ABDOMEN: Bowel sounds present, soft, no tenderness appreciated. EXTREMITIES: The left foot is wrapped in a surgical dressing. There is obvious swelling of the left foot and the area of the distal tibia beyond the wrapping is warm. SKIN: No diffuse rash. NEUROLOGIC: No gross focal findings. PSYCHIATRIC: The patient is calm and cooperative. IMPRESSION 1. Abscess of the left foot following traumatic injury with rusted metal. Post debridement culture pending. No growth 24 hours. Path without osteo. 2. Cellulitis following puncture injury to the left foot at the fourth metatarsal. 3. left foot pain. RECOMMENDATIONS 1. Continue vancomycin. 2. Change cefepime to Levaquin. 3. Follow the wound culture. If negative at 72 hours we can give 2 weeks of Vancomycin plus Levaquin. Moe Gillespie MD Aug 22, 2017 16:36
[2017-08-22] MEDS: LEVOFLOXACIN 750 MG TAB PO SCH (18:26)
--- NOTE | 2017-08-22 19:42 | PD.POD ---
Subjective Podiatric Problems s/p left foot I&D by for infected hematoma. Daily packing and iv abx are current tx. Pt states that the swelling has gone down a lot but remains very painful. Pain score: 7 Remarks with palpation of left foot, otherwise no pain. Past Med/Surg/Social History Social History Smoking Status: Current Every Day Smoker Objective Vital Signs Vital Signs Date Time Temp Pulse Resp B/P (MAP) Pulse Ox O2 Delivery O2 Flow Rate FiO2 08/22/17 17:16 97 21 08/22/17 17:03 97.5 63 17 169/85 (113) 97 08/22/17 12:46 97.3 60 17 163/79 (107) 97 08/22/17 08:56 97.1 64 18 169/84 (112) 97 08/22/17 08:45 95 21 08/22/17 05:29 97.6 60 18 136/68 (90) 94 08/22/17 00:24 98.2 62 19 152/82 (105) 95 08/21/17 21:17 98.7 95 18 147/77 (100) 97 Coded Allergies: No Known Drug Allergies (Verified Allergy, Unknown, 08/18/17) Physical Exam Remarks Left plantar foot sutures are intact, packing site is very shallow, sanginous drainage, no pus, no malodor. Erythema persists to dorsal lateral foot with mild edema and tenderness with palpation. Assessment & Plan A/P 1) left foot cellulitis, s/p bedside I&D -over all improvement seen but cellulitis and pain are still present -bone bx is neg, but agree with ID plan for short term IV abx -will likely no longer need packing at d/c, a dry dressing should suffice -f/u with in 5 days after d/c Earnestine Ramirez DPM Aug 22, 2017 19:42
[2017-08-22] MEDS: MORPHINE SULFATE 2 MG/ML INJ IV PUSH PRN (21:51)
[2017-08-23] VITALS (8 sets, daily range): BP systolic 140–172; BP diastolic 71–90; PULSE 18–85; RESP 16–18; TEMP 97.4–98.1; O2SAT 95–100
[2017-08-23] MEDS: SODIUM CHLORIDE 0.9% FLUSH 10 ML FLUSH IV FLUSH SCH ×2 (09:00→20:43)
[2017-08-23 10:47] LABS: CREATININE 0.81 MG/DL (0.60-1.30)
[2017-08-23] MEDS: CLOPIDOGREL 75 MG TAB PO SCH (10:56)
[2017-08-23] MEDS: VANCOMYCIN INJ 1,250 MG in SODIUM CHLOR 0.9% 250 ML INJ 250 ML IV SCH ×2 (10:56→22:23)
[2017-08-23] MEDS: ENALAPRIL MALEATE 2.5 MG TAB PO SCH (10:57)
[2017-08-23] MEDS: DOCUSATE SODIUM 50 MG/SENNA 8.6 MG TAB PO SCH ×2 (10:57→20:41)
[2017-08-23] MEDS: HEPARIN SODIUM - SQ 10,000 UNITS/ML VIAL SQ SCH ×2 (10:57→20:42)
[2017-08-23] MEDS: ACETAMINOPHEN/HYDROcodone 325 MG/5 MG TAB PO PRN ×2 (14:32→17:56)
--- NOTE | 2017-08-23 17:14 | HHI.PR ---
Subjective Remarks He is seen in the bed appears in no acute distress at this time. Pain in his left foot is fairly controlled. No fever or chills overnight. No vomiting or diarrhea constipation. Objective Vitals Vital Signs Date Time Temp Pulse Resp B/P (MAP) Pulse Ox O2 Delivery O2 Flow Rate FiO2 08/23/17 12:00 98.1 60 18 162/88 (112) 97 08/23/17 08:00 97.5 60 18 151/81 (104) 97 08/23/17 06:12 98.0 64 16 141/75 (97) 97 08/23/17 04:00 97.5 85 18 140/71 (94) 100 08/23/17 01:00 97.8 18 18 154/78 (103) 95 08/23/17 00:00 97.8 68 18 154/78 (103) 95 08/22/17 20:00 97.8 68 18 154/78 (103) 95 08/22/17 17:16 97 21 I/O 08/22/17 08/22/17 08/22/17 08/23/17 08/23/17 08/23/17 07:00 15:00 23:00 07:00 15:00 23:00 Intake Total 350 ml 730 ml Output Total 600 ml 900 ml 700 ml Balance 350 ml -600 ml -170 ml -700 ml Intake Oral 480 ml IV Total 350 ml 250 ml Output Urine Total 600 ml 900 ml 700 ml Result Diagram: 08/19/17 0813 08/23/17 0858 Imaging Last Impressions Chest X-Ray 08/20/17 1330 Signed Impressions: Service Date/Time: Sunday, August 20, 2017 14:14 - CONCLUSION: No acute disease. Bull Powell MD Foot X-Ray 08/18/17 0000 Signed Impressions: Service Date/Time: Friday, August 18, 2017 21:25 - CONCLUSION: 1. No acute fracture or joint dislocation. 2. No radiopaque foreign bodies. Jaime Meier MD Objective Remarks GENERAL: Awake and alert does not appear in acute distress in bed. CARDIOVASCULAR: Regular rate and rhythm. RESPIRATORY: No accessory muscle use. Clear to auscultation. Breath sounds equal bilaterally. GASTROINTESTINAL: Abdomen soft, non-tender, nondistended. Hepatic and splenic margins not palpable. MUSCULOSKELETAL: left foot- warm, plantar aspect- wound/incision with sutures in place, iodoform packing drain in place,,sensitive to touch erythema improved good peripheral pulses NEUROLOGICAL: Awake and alert. No obvious cranial nerve deficits. Motor grossly within normal limits. Five out of 5 muscle strength in the arms and legs. Normal speech. PSYCHIATRIC: Appropriate mood and affect; insight and judgment normal. Procedures 08/20 Left foot incision and drainage with bone biopsy fourth metatarsal A/P Problem List: (1) Cellulitis ICD Code: L03.90 - Cellulitis, unspecified Status: Acute (2) Failure of outpatient treatment ICD Code: Z78.9 - Other specified health status Status: Acute (3) HTN (hypertension) ICD Code: I10 - Essential (primary) hypertension (4) Tobacco abuse ICD Code: Z72.0 - Tobacco use Assessment and Plan 66 years old male S/p injury after stepping on rebar. with dry necrotic scab tender wound- plantar aspect Left foot cellulitis with dry necrotic wound plantar aspect S/P I and D with biopsy of 4th metatarsal- 08/20 failed OP therapy with Augmentin CASSIE studies-normal Continue IV Abx,- Vancomycin + Cefepime. ID ff Podiatry ff ff c and S and pathology- still pending HTN/History of PM placement meds- - ANEL/CCB, Plavix Tobacco Abuse: Pt counselled. NicoDerm prn if needed. 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 PT consult- for ambulation- device- ? walker Discussed with the patient, nurse Problem Qualifiers (1) Cellulitis: Qualified Codes: L03.116 - Cellulitis of left lower limb Kisha Rich MD Aug 23, 2017 17:14
[2017-08-23] MEDS: LEVOFLOXACIN 750 MG TAB PO SCH (17:55)
[2017-08-23] MEDS ORDERED: PHARMACY ORDERED LAB ONE (20:45)
[2017-08-24] VITALS: BP 142/78; PULSE 62; RESP 18; TEMP 97.6; O2SAT 97
[2017-08-24 04:00] VITALS: BP 138/77; PULSE 60; RESP 18; TEMP 97.9; O2SAT 97
[2017-08-24] MEDS: CLOPIDOGREL 75 MG TAB PO SCH (07:56)
[2017-08-24] MEDS: ENALAPRIL MALEATE 2.5 MG TAB PO SCH (07:56)
[2017-08-24] MEDS: DOCUSATE SODIUM 50 MG/SENNA 8.6 MG TAB PO SCH ×2 (07:57→21:29)
[2017-08-24] MEDS: VANCOMYCIN INJ 1,250 MG in SODIUM CHLOR 0.9% 250 ML INJ 250 ML IV SCH ×2 (07:57→21:28)
[2017-08-24] MEDS: SODIUM CHLORIDE 0.9% FLUSH 10 ML FLUSH IV FLUSH SCH ×2 (07:57→21:00)
[2017-08-24] MEDS: HEPARIN SODIUM - SQ 10,000 UNITS/ML VIAL SQ SCH ×2 (07:57→21:29)
[2017-08-24 08:00] VITALS: BP 140/83; PULSE 64; RESP 18; TEMP 97.3; O2SAT 97
--- NOTE | 2017-08-24 11:08 | HHI.PR ---
Subjective Remarks Patient in nad. No n/v/d/c. Denies chest pain or sob. no fever or chills. Wants to go home/ Pain is controlled by meds. Objective Vitals Vital Signs Date Time Temp Pulse Resp B/P (MAP) Pulse Ox O2 Delivery O2 Flow Rate FiO2 08/24/17 04:00 97.9 60 18 138/77 (97) 97 08/24/17 00:00 97.6 62 18 142/78 (99) 97 08/23/17 20:00 97.4 65 18 150/83 (105) 98 08/23/17 20:00 97.4 65 18 150/83 (105) 98 08/23/17 16:00 97.6 60 18 172/90 (117) 98 08/23/17 12:00 98.1 60 18 162/88 (112) 97 I/O 08/23/17 08/23/17 08/23/17 08/24/17 08/24/17 08/24/17 07:00 15:00 23:00 07:00 15:00 23:00 Output Total 700 ml Balance -700 ml Output Urine Total 700 ml Result Diagram: 08/23/17 0858 Imaging Last Impressions Chest X-Ray 08/20/17 1330 Signed Impressions: Service Date/Time: Sunday, August 20, 2017 14:14 - CONCLUSION: No acute disease. Bull Powell MD Foot X-Ray 08/18/17 0000 Signed Impressions: Service Date/Time: Friday, August 18, 2017 21:25 - CONCLUSION: 1. No acute fracture or joint dislocation. 2. No radiopaque foreign bodies. Jaime Meier MD Objective Remarks GENERAL: Awake and alert does not appear in acute distress in bed. CARDIOVASCULAR: Regular rate and rhythm. RESPIRATORY: No accessory muscle use. Clear to auscultation. Breath sounds equal bilaterally. GASTROINTESTINAL: Abdomen soft, non-tender, nondistended. Hepatic and splenic margins not palpable. MUSCULOSKELETAL: left foot- warm, plantar aspect- wound/incision with sutures in place, iodoform packing drain in place,,sensitive to touch erythema improved good peripheral pulses NEUROLOGICAL: Awake and alert. No obvious cranial nerve deficits. Motor grossly within normal limits. Five out of 5 muscle strength in the arms and legs. Normal speech. PSYCHIATRIC: Appropriate mood and affect; insight and judgment normal. Procedures 08/20 Left foot incision and drainage with bone biopsy fourth metatarsal A/P Problem List: (1) Cellulitis ICD Code: L03.90 - Cellulitis, unspecified Status: Acute (2) Failure of outpatient treatment ICD Code: Z78.9 - Other specified health status Status: Acute (3) HTN (hypertension) ICD Code: I10 - Essential (primary) hypertension (4) Tobacco abuse ICD Code: Z72.0 - Tobacco use Assessment and Plan 66 years old male S/p injury after stepping on rebar. with dry necrotic scab tender wound- plantar aspect Left foot cellulitis with dry necrotic wound plantar aspect S/P I and D with biopsy of 4th metatarsal- 08/20 failed OP therapy with Augmentin CASSIE studies-normal Continue IV Abx,- Vancomycin. DC Cefepime. ID ff. Antibiotic at DC: Vancomycin 1750 mg IV Q 24 hours Stop Treatment: Sep 03, 2017 Podiatry ff ff c and S and pathology- still pending HTN/History of PM placement meds- - ANEL/CCB, Plavix Tobacco Abuse: Pt counselled. NicoDerm prn if needed. 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 PT consult- for ambulation- device- ? walker Discussed with the patient, nurse, Dr Gillespie CM consulted for DC plan. DC to SN[facility] on [facility] IV Antibiotic at DC: Vancomycin 1750 mg IV Q 24 hours Stop Treatment: Sep 03, 2017 Problem Qualifiers (1) Cellulitis: Qualified Codes: L03.116 - Cellulitis of left lower limb Kisha Rich MD Aug 24, 2017 11:08
--- NOTE | 2017-08-24 11:35 | HHI.IDPN ---
Note Infectious Disease Note Patient feels okay. Has pain in the L. foot. No other complaints. Afebrile. Wound culture has no growth. 66-year-old white male who stepped onto a piece of rusted sharp metal which was holding up concrete in a parking lot. The patient subsequently developed erythema and swelling and pain two days later with redness streaking up his leg. The patient had pulled out the metal piece from his foot at the time of the incident. He presented to the emergency department when he developed the swelling and erythema. He was admitted to the hospital and he underwent I&D of the foot. Prior to being seen in emergency department he was receiving oral antibiotics and he was given a tetanus injection. PAST MEDICAL HISTORY 1. Hypertension. 2. Coronary artery disease. 3. No history of diabetes mellitus. 4. History of pacemaker implantation 10 years ago. ANTIBIOTICS 1. Vancomycin. 2. Levaquin. OBJECTIVE: Vital Signs Date Time Temp Pulse Resp B/P (MAP) Pulse Ox O2 Delivery O2 Flow Rate FiO2 08/24/17 08:00 97.3 64 18 140/83 (102) 97 08/24/17 04:00 97.9 60 18 138/77 (97) 97 08/24/17 00:00 97.6 62 18 142/78 (99) 97 08/23/17 20:00 97.4 65 18 150/83 (105) 98 08/23/17 20:00 97.4 65 18 150/83 (105) 98 08/23/17 16:00 97.6 60 18 172/90 (117) 98 08/23/17 12:00 98.1 60 18 162/88 (112) 97 Laboratory Tests Test 08/23/17 08:58 Creatinine 0.81 MG/DL Estimat Glomerular Filtration Rate 95 ML/MIN Laboratory Tests Test 08/21/17 13:30 Erythrocyte Sedimentation Rate 37 mm/hr IMAGING: Chest X-Ray 08/20/17 1330 Signed Impressions: Service Date/Time: Sunday, August 20, 2017 14:14 - CONCLUSION: No acute disease. Bull Powell MD Foot X-Ray 08/18/17 0000 Signed Impressions: Service Date/Time: Friday, August 18, 2017 21:25 - CONCLUSION: 1. No acute fracture or joint dislocation. 2. No radiopaque foreign bodies. Jaime Meier MD PHYSICAL EXAMINATION GENERAL: No acute distress. HEENT: The head is atraumatic. Extraocular movements grossly intact, pupils reactive to light. No icterus. Oropharynx moist mucosa without lesions. NECK: Supple without adenopathy or swelling. LUNGS: Clear breath sounds bilateral. HEART: Regular S1-S2 without murmurs, rubs or gallops. ABDOMEN: Bowel sounds present, soft, no tenderness appreciated. EXTREMITIES: The right foot is wrapped in a surgical dressing. There is obvious swelling of the right foot and the area of the distal tibia beyond the wrapping is warm. SKIN: No diffuse rash. NEUROLOGIC: No gross focal findings. PSYCHIATRIC: Calm and cooperative. IMPRESSION 1. Abscess of the left foot following traumatic injury with rusted metal. Post debridement culture pending. No growth 24 hours. Path without osteo. 2. Cellulitis following puncture injury to the right foot at the fourth metatarsal. 3. Right foot pain. RECOMMENDATIONS 1. Continue vancomycin until 09/03. 2. Continue Levaquin until 09/03. 3. Orders written on infusion form. Please call me if further input is needed. Moe Gillespie MD Aug 24, 2017 11:35
--- NOTE | 2017-08-24 11:50 | HHI.FF ---
Infusion Therapy Location of Infusion Therapy: Home Health Care IV Infusion Order Patient Information Patient Weight 80.4 kg Diagnosis: (1) Puncture wound of foot, left, complicated (2) Cellulitis Coded Allergies: No Known Drug Allergies (Verified Allergy, Unknown, 08/18/17) Administer Medication Vancomycin 1750 mg IV Q 24 hours Stop Treatment: Sep 03, 2017 Additional Information Venous access: PICC Line Additional Instructions [x] Peripheral flush and dressing changes per protocol [x] Implanted port and central commercial lines insurance agent: * Implanted port: 10 ml Normal Saline followed by 5 ml Heparin 100 units/ml Heparin flush after each use and monthly to maintain. [] May leave port accessed during therapy. [] May leave peripheral site accessed for duration of therapy. [x] If patient has SOB or respiratory distress, check oxygen saturation. If less than 90% or clinical signs of respiratory distress, administer oxygen at 2 L/min. via nasal cannula and notify physician. [x] Anaphylaxis/Reaction orders: * Stop infusion. * Keep IV line open with saline flush. * Notify physician. * Monitor vital signs every 15 minutes until symptoms resolve. * Check Oxygen saturation; Oxygen at 2 L/min. via nasal cannula if less than 90% or clinical signs of respiratory distress. * Administer diphenhydramine (Benadryl) 25 mg IV STAT, (unless patient has received as pre-med). May repeat once, if necessary. * Solu-Cortef 250 mg IVP over 30-60 seconds, use 100 mg vials for each dissolution. * Epinephrine (1mg/1 ml) 0.3 mg subcutaneously or IVP now with any signs of respiratory distress. * Check with physician for new additional pre-med orders if patient is re- challenged or re-treated. [x] May remove PICC line when treatment complete, after confirming with Physician. [x] If the patient is admitted to the hospital, the ED, or transferred via [facility] , complete transfer form including medication reconciliation order sheet. Laboratory Tests Weekly Labs: BMP, Vancomycin Trough Additional Information Vancomycin trough and BMP on 08/28/17. Fax lab results to Dr Gillespie [phone]. Moe Gillespie MD Aug 24, 2017 11:50
[2017-08-24 12:00] VITALS: BP 158/82; PULSE 62; RESP 18; TEMP 97.2; O2SAT 98
--- NOTE | 2017-08-24 13:32 | HHI.FF ---
Face to Face Verification Diagnosis: (1) Tobacco abuse (2) Cellulitis (3) HTN (hypertension) (4) Puncture wound of foot, left, complicated (5) Failure of outpatient treatment Physical Therapy Order: Evaluate and Treat Home Health Nursing Order: Medical education Signs/symptoms of disease process Medication education-adverse effect Nursing assessment with vital signs I have seen patient Srinivasan López GarryJr on 08/24/17. My clinical findings support the need for the requested home health care services because: Ltd mobility - disease progression Patient has SOB I certify that my clinical findings support that this patient is homebound because: Post-op weakness Unsteady gait/balance Kisha Rich MD Aug 24, 2017 13:32
--- NOTE | 2017-08-24 13:34 | HHI.DS ---
Discharge Summary Admission Date Aug 18, 2017 at 22:25 Discharge Date: Aug 25, 2017 Admitting Diagnosis R FOOT WOUND CELLULITIS; FAILED OUTPT TX (1) Cellulitis ICD Code: L03.90 - Cellulitis, unspecified Status: Acute (2) Failure of outpatient treatment ICD Code: Z78.9 - Other specified health status Status: Acute (3) HTN (hypertension) ICD Code: I10 - Essential (primary) hypertension (4) Tobacco abuse ICD Code: Z72.0 - Tobacco use Procedures 08/20 Left foot incision and drainage with bone biopsy fourth metatarsal Brief History - From Admission This is a 66-year-old male with a PMH of HTN, CAD and Tobacco Abuse who presented to the ER with complaints of left foot pain. States he stepped on a piece of rebar on Monday (2 nights ago), was seen at Urgent Care, had Tetanus injection and given Augmentin 875mg bid. Reports taking antibiotics as instructed. Seen at Urgent Care today for follow up and referred to ER secondary to worsening infection. Denies fever, chills. Reports foot pain, constant, sharp, worse w/ ambulation/standing, non-radiating. On arrival, BP 150/81, HR 85, O2 sat 98% on RA, Afebrile. CBC essentially unremarkable except for elevated neutrophil count. Chemistry unremarkable except for GFR 82. Foot X-ray with no acute fracture, no foreign body noted. S/p Vanc in ER. CBC/BMP: 08/23/17 0858 Significant Findings Laboratory Tests Test 08/21/17 22:35 08/23/17 08:58 08/23/17 20:45 Vancomycin Level Trough 3.8 MCG/ML (5.0-10.0) 14.4 MCG/ML (5.0-10.0) Imaging Last Impressions Chest X-Ray 08/24/17 0000 Signed Impressions: Service Date/Time: August 15:32 - CONCLUSION: 1. Right-sided PICC line in good position. Sin Clement MD Foot X-Ray 08/18/17 0000 Signed Impressions: Service Date/Time: Friday, August 18, 2017 21:25 - CONCLUSION: 1. No acute fracture or joint dislocation. 2. No radiopaque foreign bodies. Jaime Meier MD PE at Discharge GENERAL: Awake and alert does not appear in acute distress in bed. CARDIOVASCULAR: Regular rate and rhythm. RESPIRATORY: No accessory muscle use. Clear to auscultation. Breath sounds equal bilaterally. GASTROINTESTINAL: Abdomen soft, non-tender, nondistended. Hepatic and splenic margins not palpable. MUSCULOSKELETAL: left foot- warm, plantar aspect- wound/incision with sutures in place, iodoform packing drain in place,,sensitive to touch erythema improved good peripheral pulses NEUROLOGICAL: Awake and alert. No obvious cranial nerve deficits. Motor grossly within normal limits. Five out of 5 muscle strength in the arms and legs. Normal speech. PSYCHIATRIC: Appropriate mood and affect; insight and judgment normal. Pt update on day of discharge In bed appears to not acute distress. With pain in his foot is also by medications. No fever or chills overnight. Plan to go to SNF and receive IV antibiotics. Hospital Course 66 years old male S/p injury after stepping on rebar. with dry necrotic scab tender wound- plantar aspect Left foot cellulitis with dry necrotic wound plantar aspect S/P I and D with biopsy of 4th metatarsal- 08/20 failed OP therapy with Augmentin CASSIE studies-normal Continue IV Abx,- Vancomycin. DC Cefepime. ID ff. Antibiotic at DC: Vancomycin 1750 mg IV Q 24 hours Stop Treatment: Sep 03, 2017 Podiatry ff ff c and S and pathology- still pending HTN/History of PM placement meds- - ANEL/CCB, Plavix Tobacco Abuse: Pt counselled. NicoDerm prn if needed. DVT Prophylaxis: Heparin SQ [employer] DC planning as needed. PT consult- for ambulation- device- ? walker Discussed with the patient, nurse, Dr Gillespie CM consulted for DC plan. DC to SNF on Vanco IV andPO Levaquin Antibiotic at DC: Vancomycin 1750 mg IV Q 24 hours Stop Treatment: Sep 03, 2017. Also PO antibiotic levaquin 750 mg pO daily until 09/03/17. Discussed with Dr Gillespie ID. PLAN DISCUSSE WITH THE PATIENT Pt Condition on Discharge: Stable Discharge Disposition: Discharge to SNF Discharge Time: > 30 minutes Discharge Instructions DIET: Follow Instructions for: Heart Healthy Diet, Diabetic Diet Activities you can perform: Weight Bearing as Rafael Follow up Referrals: PCP Follow-up - 2-3 Days Podiatry - 3-5 Days @ [facility] with Bailey Chinchilla DPM New Medications: Hydrocodone-Acetaminophen ([place]) 5 Mg-325 Mg Tab 1 TAB PO Q6H PRN for PAIN, #45 TAB 0 Refills Vancomycin Inj (Vancomycin Inj) 1 Gram Inj 1750 MG IV DAILY for Infection, #35 BAG 0 Refills End date of vancomycin IV antibiotic is 09/03/17 Levofloxacin (Levaquin) 750 Mg Tablet 750 MG PO DAILY@1800 for infection , #10 MG End date for levaquin administration is 09/03/17 Sennosides-Docusate Sodium (Gnp Senna Plus 8.6-50 mg) 8.6 Mg-50 Mg Tab 1 TAB PO BID for Constipation, #60 TAB Continued Medications: Amlodipine (Amlodipine) 10 Mg Tab 10 MG PO DAILY for Blood Pressure Management, #30 TAB 0 Refills Clopidogrel (Clopidogrel) 75 Mg Tab 75 MG PO DAILY for Blood Clot Prevention, #30 TAB 0 Refills Enalapril (Enalapril) 2.5 Mg Tab 2.5 MG PO DAILY, #30 TAB 0 Refills Miscellaneous (Office Medication) Misc 1 TAB PO DAILY for Blood Pressure Management Miscellaneous (Office Medication) Misc 1 TAB PO DAILY for Blood Pressure Management Miscellaneous (Office Medication) Misc 1 TAB PO DAILY for Blood Pressure Management Kisha Rich MD Aug 24, 2017 13:34
[2017-08-24] MEDS ORDERED: PERI PO (13:36)
[2017-08-24] MEDS ORDERED: NORC5TAB PO (13:36)
[2017-08-24] MEDS: ACETAMINOPHEN/HYDROcodone 325 MG/5 MG TAB PO PRN ×2 (13:51→21:29)
[2017-08-24] MEDS ORDERED: LEVA750T9 PO (13:56)
[2017-08-24] MEDS ORDERED: SODIUM CHLORIDE 0.9% FLUSH 10 ML FLUSH IV FLUSH PRN (15:45)
[2017-08-24 16:00] VITALS: BP 137/86; PULSE 62; RESP 18; TEMP 97.8; O2SAT 97
--- NOTE | 2017-08-24 16:24 | RADRPT ---
EXAM DATE/TIME: 08/24/2017 15:32 [place] COMPARISON: No previous studies available for comparison. INDICATIONS : Confirmation of PICC line placement MEDICAL HISTORY : Hypertension. SURGICAL HISTORY : ENCOUNTER: Initial ACUITY: 1 day PAIN SCORE: 0/10 LOCATION: chest FINDINGS: Stable dual-lead pacemaker in place. Interval placement right-sided PICC line with tip near the atria l junction. No new focal pleural or parenchymal opacities. Remainder of the exam is unchanged. CONCLUSION: 1. Right-sided PICC line in good position. Sin Clement MD on August 24, 2017 at 16:21 Board Certified Radiologist. This report was verified electronically.
[2017-08-24] MEDS: LEVOFLOXACIN 750 MG TAB PO SCH (16:58)
[2017-08-24 20:20] VITALS: BP 134/88; PULSE 65; RESP 17; TEMP 97.6; O2SAT 97
[2017-08-25 00:20] VITALS: BP 150/80; PULSE 65; RESP 17; TEMP 97.9; O2SAT 97
[2017-08-25 04:24] VITALS: BP 133/72; PULSE 62; RESP 18; TEMP 97.2; O2SAT 97
[2017-08-25] MEDS: VANCOMYCIN INJ 1,250 MG in SODIUM CHLOR 0.9% 250 ML INJ 250 ML IV SCH (07:51)
[2017-08-25] MEDS: ENALAPRIL MALEATE 2.5 MG TAB PO SCH (07:51)
[2017-08-25] MEDS: CLOPIDOGREL 75 MG TAB PO SCH (07:51)
[2017-08-25] MEDS: DOCUSATE SODIUM 50 MG/SENNA 8.6 MG TAB PO SCH (07:51)
[2017-08-25] MEDS: SODIUM CHLORIDE 0.9% FLUSH 10 ML FLUSH IV FLUSH SCH (07:52)
[2017-08-25] MEDS: HEPARIN SODIUM - SQ 10,000 UNITS/ML VIAL SQ SCH (07:52)
[2017-08-25 08:25] VITALS: BP 130/70; PULSE 60; RESP 18; TEMP 97.2; O2SAT 96
[2017-08-25] MEDS ORDERED: SODIUM CHLORIDE 0.9% FLUSH 10 ML FLUSH IV FLUSH SCH (09:00)
[2017-08-25 09:25] LABS: CREATININE 0.87 MG/DL (0.60-1.30)
[2017-08-25] MEDS ORDERED: VANC1000P IV (10:01)
== END 2017-08-25 12:25 | DRG 580 ==
LOC: NEPE 20:07 → NEDA 22:25 → N05B 23:23
PROVIDERS: ADMIT Hospitalist; ATTEND Hospitalist
PROC: 3E0T3BZ Introduction of Anesthetic Agent into Peripheral Nerves and Plexi, Percutaneous Approach (ICD-10-PCS; 2017-08-18)
PROC: 0Y9N3ZX Drainage of Left Foot, Percutaneous Approach, Diagnostic (ICD-10-PCS; 2017-08-20)
PROC: 0QBP3ZX Excision of Left Metatarsal, Percutaneous Approach, Diagnostic (ICD-10-PCS; principal; 2017-08-20 20:50)
DX: L03.116 Cellulitis of left lower limb (principal); L02.612 Cutaneous abscess of left foot; L97.529 Non-pressure chronic ulcer of other part of left foot with unspecified severity; I10 Essential (primary) hypertension; S91.332A Puncture wound without foreign body, left foot, initial encounter; I25.10 Atherosclerotic heart disease of native coronary artery without angina pectoris; F17.200 Nicotine dependence, unspecified, uncomplicated; W26.8XXA Contact with other sharp object(s), not elsewhere classified, initial encounter; Y92.481 Parking lot as the place of occurrence of the external cause; Z16.30 Resistance to unspecified antimicrobial drugs; Z23 Encounter for immunization; Z95.0 Presence of cardiac pacemaker
CPT/HCPCS: 36569; 71045; 71046; 73630; 76937; 80053; 80202; 82565; 85025; 85652; 87015; 87040; 87070; 87102; 87116; 87205; 87206; 88304; 88307; 88311; 90686; 93005; 93923; 96365; J0330; J0692; J1170; J1200; J1580; J1642; J1644; J2270; J2370; J2405; J3370; J7050; Q2038